=== PATIENT | female | born 1995 | race Two or more races ===

== ENCOUNTER 2016-11-09 07:19 | Emergency (ER) | payer OTHER ==
[~2016-11-09] VITALS: Ht 160 cm; Wt 77.1 kg
[2016-11-09] MEDS ORDERED: SODIUM CHLORIDE 0.9% 1,000 ML IV ONE (08:11)
[2016-11-09] MEDS ORDERED: HYDROmorphone HCL 2 MG/ML VL IV ONE (08:15)
[2016-11-09] MEDS ORDERED: PROMETHAZINE HCL 25 MG/ML 1ML IV PRN (08:15)
[2016-11-09 08:25] LABS: Basophils # (auto) 0 uL; Basophils % (auto) 0.2 % (0.0-2.0); Eosinophils # (auto) 0 uL; Hematocrit 38.7 % (36.0-46.0); Hemoglobin 13.3 g/dL (12.2-16.2); Lymphocytes # (auto) 0.7 uL; Lymphocytes % (auto) 5.4 % (10.0-50.0); Mean Corpuscular Hemoglobin 27.7 pg (28.0-32.0); Mean Corpuscular Hgb Conc. 34.3 g/dL (32.0-36.0); Mean Corpuscular Volume 80.8 fL (80.0-100.0); Mean Platelet Volume 7.5 fL (7.4-10.4); Monocytes # (auto) 0.2 uL; Monocytes % (auto) 1.2 % (0.0-12.0); Neutrophils # (auto) 12.2 uL; Neutrophils % (auto) 93.2 % (37.0-80.0); Platelet Count (auto) 317 10^3/uL (140-450); White Blood Cell 13.1 10^3/uL (4.4-10.8)
[2016-11-09 09:29] LABS: Albumin 3.1 g/dL (3.4-5.0); BUN/Creatinine Ratio 19.5; Bilirubin, Total 0.3 mg/dL (0.2-1.0); Calcium 9.2 mg/dL (8.5-10.1); Potassium 3.7 mmol/L (3.5-5.1); Total Protein 7.3 g/dL (6.4-8.2)
[2016-11-09 11:08] LABS: Urine Bilirubin Negative (Negative); Urine Blood Negative /uL (Negative); Urine Color Yellow (Yellow); Urine Glucose Normal (Normal); Urine Mucus FEW (None Seen); Urine Nitrite Negative (Negative); Urine RBC 4 /hpf (0 - 4); Urine Squamous Epithelial Cell FEW /hpf (<5); Urine Urobilinogen Normal (Negative); Urine pH 6.5 (5.0-8.0)
[2016-11-09 11:11] LABS: Urine Ketone 4+ (Negative)
[2016-11-09] MEDS ORDERED: cefTRIAXone 1GM/50ML D5W 50 ML IV ONE (12:45)
== END 2016-11-09 14:34 | disposition home or self-care (01) ==
LOC: ER 07:19
DX: O23.42 Unspecified infection of urinary tract in pregnancy, second trimester (principal); O26.892 Other specified pregnancy related conditions, second trimester; N20.1 Calculus of ureter; Z3A.22 22 weeks gestation of pregnancy
CPT/HCPCS: 36415; 76775; 76805; 80053; 81001; 83690; 83735; 85025; 96361; 96365; 96375; 99285; J0696; J1170; J2550; J7030

== ENCOUNTER 2017-02-18 12:50 | Inpatient (IN) | payer MEDICAID ==
[~2017-02-18] VITALS: Ht 160 cm; Wt 86.6 kg
[2017-02-18] MEDS ORDERED: LACT. RINGERS/OXYTOCIN 20UNITS 1,000 ML IV SCH (14:09)
[2017-02-18] MEDS: LACTATED RINGER'S 1,000 ML IV SCH ×2 (14:09→22:09)
[2017-02-18] MEDS ORDERED: NALBUPHINE HCL 10 MG/1ml INJECTION IV PRN (14:15)
[2017-02-18] MEDS ORDERED: LIDOCAINE 2%HCL (LOCAL ANESTH.) INJ 20ML MDV IJ ONE (14:15)
[2017-02-18] MEDS ORDERED: WITCH HAZEL-GLYCERIN PAD TOP PRN (14:15)
[2017-02-18] MEDS ORDERED: PHISODERM TOP SOLN 240ML BTL TOP PRN (14:15)
[2017-02-18] MEDS ORDERED: METHYLERGONOVINE MALEATE 0.2 MG/ML AMP IM PRN (14:15)
[2017-02-18] MEDS ORDERED: DERMOPLAST 60ML BOTTLE TOP PRN (14:15)
[2017-02-18] MEDS ORDERED: PENICILLIN G POT 5MIL/D5 50ML 50 ML IV ONE (14:30)
[2017-02-18 14:52] LABS: Basophils # (auto) 0 uL; Basophils % (auto) 0.2 % (0.0-2.0); Eosinophils # (auto) 0 uL; Eosinophils % (auto) 0.2 % (0.0-7.0); Hematocrit 38.8 % (36.0-46.0); Lymphocytes # (auto) 1.3 uL; Lymphocytes % (auto) 16.6 % (10.0-50.0); Mean Corpuscular Hgb Conc. 33.5 g/dL (32.0-36.0); Mean Corpuscular Volume 89.6 fL (80.0-100.0); Mean Platelet Volume 6.8 fL (7.4-10.4); Monocytes # (auto) 0.4 uL; Monocytes % (auto) 5.7 % (0.0-12.0); Neutrophils # (auto) 5.9 uL; Neutrophils % (auto) 77.3 % (37.0-80.0); Nucleated Red Blood Cells % 0.1 %; Platelet Count (auto) 216 10^3/uL (140-450); Red Cell Distribution Width 14.6 % (11.6-16.0); White Blood Cell 7.6 10^3/uL (4.4-10.8)
[2017-02-18 15:09] LABS: INR 0.92 (0.9-1.15); Partial Thromboplastin Time 30.1 sec (22.64-33.71)
[2017-02-18 15:13] LABS: Albumin 2.5 g/dL (3.4-5.0); BUN/Creatinine Ratio 12.5; Calcium 8.7 mg/dL (8.5-10.1); Potassium 3.7 mmol/L (3.5-5.1)
[2017-02-18 15:16] LABS: Bilirubin, Total 0.3 mg/dL (0.2-1.0); Total Protein 6.3 g/dL (6.4-8.2)
[2017-02-18 16:14] LABS: Urine Bilirubin Negative (Negative); Urine Blood Negative /uL (Negative); Urine Color Yellow (Yellow); Urine Glucose Normal (Normal); Urine Ketone Negative (Negative); Urine Mucus FEW (None Seen); Urine Nitrite Negative (Negative); Urine RBC 4 /hpf (0 - 4); Urine Squamous Epithelial Cell FEW /hpf (<5); Urine Urobilinogen Normal (Negative); Urine pH 7.5 (5.0-8.0)
[2017-02-18] MEDS ORDERED: PROMETHAZINE HCL 25 MG/ML 1ML IV PRN (17:00)
[2017-02-18] MEDS: PENICILLIN G POTASSIUM 2,500,000 UNITS in D5W 5% 50 ML IV SCH ×2 (18:41→22:41)
[2017-02-18] MEDS ORDERED: fentaNYL W ROPIVACAINE 150 ML EPI ONE (20:10)
[2017-02-18] MEDS ORDERED: LIDOCAINE HCL 2 %PF INJ 10ML AMP IJ ONE ×2 (20:10→20:15)
[2017-02-18] MEDS ORDERED: fentaNYL CITRATE 100 MCG/2 ML VL ONE (20:10)
[2017-02-18] MEDS ORDERED: fentaNYL CITRATE 100 MCG/2 ML VL IV ONE (20:15)
[2017-02-18] MEDS ORDERED: fentaNYL W ROPIVACAINE 150 ML EPI SCH ×2 (20:15→21:30)
[2017-02-18] MEDS ORDERED: NALOXONE HCL 0.4 MG/ML VIAL IV ONE ×2 (20:15→21:30)
[2017-02-18] MEDS ORDERED: ePHEDrine SULFATE 50 MG/ML AMP IV ONE ×2 (20:15→21:30)
[2017-02-18] MEDS ORDERED: ePHEDrine SULFATE 50 MG/ML AMP ONE (20:17)
[2017-02-18] MEDS ORDERED: NALOXONE HCL 0.4 MG/ML VIAL ONE (20:17)
[2017-02-18] MEDS ORDERED: SODIUM CHLORIDE 0.9% 500 ML IV PRN (21:17)
[2017-02-19] MEDS ORDERED: IBUPROFEN 600 MG TAB PO PRN (01:00)
[2017-02-19] MEDS ORDERED: ACETAMINOPHEN 325 MG TAB PO PRN (01:00)
[2017-02-19] MEDS ORDERED: LACT. RINGERS/OXYTOCIN 20UNITS 1,000 ML IV SCH (01:52)
[2017-02-19] MEDS: PENICILLIN G POTASSIUM 2,500,000 UNITS in D5W 5% 50 ML IV SCH (02:30)
[2017-02-19 08:25] VITALS: BP 104/52
[2017-02-19 12:21] VITALS: BP 100/55
[2017-02-19 16:00] VITALS: BP 112/58
[2017-02-19] MEDS ORDERED: ACET-1156 PO (16:31)
[2017-02-19] MEDS ORDERED: PRENCAP61 PO (16:31)
[2017-02-19 18:54] VITALS: BP 115/64
[2017-02-19 23:00] VITALS: BP 132/81
[2017-02-20 03:05] VITALS: BP 116/67
[2017-02-20 06:40] VITALS: BP 121/69
== END 2017-02-20 11:00 | disposition home or self-care (01) | DRG 560 ==
LOC: LDRP 12:50
PROVIDERS: ADMIT Obstetrics & Gynecology; ATTEND Obstetrics & Gynecology
PROC: 3E0S3CZ (ICD-10-PCS; principal; 2017-02-19)
PROC: 10E0XZZ Delivery of Products of Conception, External Approach (ICD-10-PCS; 2017-02-19)
PROC: 00HU33Z Insertion of Infusion Device into Spinal Canal, Percutaneous Approach (ICD-10-PCS; 2017-02-19)
PROC: 0KQM0ZZ Repair Perineum Muscle, Open Approach (ICD-10-PCS; 2017-02-19)
DX: O69.81X0 Labor and delivery complicated by cord around neck, without compression, not applicable or unspecified (principal); O71.4 Obstetric high vaginal laceration alone; Z37.0 Single live birth; O42.02 Full-term premature rupture of membranes, onset of labor within 24 hours of rupture; Z3A.37 37 weeks gestation of pregnancy
CPT/HCPCS: 36415; 51702; 59025; 59409; 62282; 80053; 80307; 81001; 81002; 85025; 85610; 85730; 86592; 86850; 86900; 86901; 94762; 96361; 96366; J2540; J2590; J3010; J7060

== ENCOUNTER 2022-03-14 10:52 | Observation (INO) | payer MEDICAID ==
[~2022-03-14 10:52] MED LIST: ACET-1156 PO; PRENCAP61 PO
== END 2022-03-14 12:53 | disposition home or self-care (01) ==
LOC: UNDOADMOB 10:52 → LDRP 10:52
PROVIDERS: ADMIT Obstetrics & Gynecology; ATTEND Obstetrics & Gynecology
DX: O60.03 Preterm labor without delivery, third trimester (principal); Z3A.33 33 weeks gestation of pregnancy
CPT/HCPCS: 59025; 81002; 94760; G0378

== ENCOUNTER 2022-03-17 15:04 | Observation (INO) | payer MEDICAID ==
[~2022-03-17] VITALS: Ht 160 cm; Wt 90.7 kg
[2022-03-17] MEDS ORDERED: BETAMETHASONE ACET (30mg/5ml) 5ml Vial 6mg/ml IM ONE (15:30)
[2022-03-17] MEDS: TERBUTALINE SULFATE 1 MG/ML 1ML VIAL SC SCH ×2 (15:34→15:54)
[2022-03-17] MEDS ORDERED: LACTATED RINGER'S 1,000 ML IV ONE (15:45)
[2022-03-17] MEDS ORDERED: ceFAZolin 2 GM in D5W 5% 100 ML IV ONE (15:45)
[2022-03-17] MEDS ORDERED: NITR-87 PO (17:54)
[2022-03-17] MEDS ORDERED: NIF10C PO (17:55)
== END 2022-03-17 19:26 | disposition home or self-care (01) ==
LOC: LDRP 15:04
PROVIDERS: ADMIT Obstetrics & Gynecology; ATTEND Obstetrics & Gynecology
DX: O99.891 Other specified diseases and conditions complicating pregnancy (principal); M54.50 Low back pain, unspecified; O21.2 Late vomiting of pregnancy; O26.893 Other specified pregnancy related conditions, third trimester; R07.89 Other chest pain; Z3A.33 33 weeks gestation of pregnancy
CPT/HCPCS: 59025; 76775; 81002; 94760; 96361; 96365; 96372; G0378; J0690; J0702; J3105; J7060; 96360

== ENCOUNTER 2022-03-18 14:52 | Observation (INO) | payer MEDICAID ==
[~2022-03-18] VITALS: Ht 160 cm; Wt 90.7 kg
[~2022-03-18 14:52] MED LIST changes: +NIF10C PO; +NITR-87 PO
[2022-03-18] MEDS ORDERED: BETAMETHASONE ACET (30mg/5ml) 5ml Vial 6mg/ml IM ONE (15:15)
== END 2022-03-18 15:41 | disposition home or self-care (01) ==
LOC: UNDOADMOB 14:52 → LDRP 14:52
PROVIDERS: ADMIT Obstetrics & Gynecology Obstetrics; ATTEND Obstetrics & Gynecology Obstetrics
DX: O60.03 Preterm labor without delivery, third trimester (principal); Z3A.33 33 weeks gestation of pregnancy
CPT/HCPCS: 96372; G0378

== ENCOUNTER 2022-03-25 07:52 | Observation (INO) | payer MEDICAID ==
[2022-03-25] MEDS ORDERED: HYDR250I6 IM (12:17)
== END 2022-03-25 12:45 | disposition home or self-care (01) ==
LOC: UNDOADMOB 10:37 → LDRP 10:37 → UNDODISOB 12:45
PROVIDERS: ADMIT Obstetrics & Gynecology Obstetrics; ATTEND Obstetrics & Gynecology Obstetrics
DX: O60.03 Preterm labor without delivery, third trimester (principal); Z3A.34 34 weeks gestation of pregnancy
CPT/HCPCS: 59025; 76818; 94760; G0378

== ENCOUNTER 2022-04-01 10:22 | Observation (INO) | payer MEDICAID ==
[~2022-04-01 10:22] MED LIST changes: +HYDR250I6 IM
== END 2022-04-01 12:27 | disposition home or self-care (01) ==
LOC: LDRP 10:34 → UNDOADMOB 10:40 → UNDODISOB 12:27
PROVIDERS: ADMIT Obstetrics & Gynecology Obstetrics; ATTEND Obstetrics & Gynecology Obstetrics
DX: O60.03 Preterm labor without delivery, third trimester (principal); Z3A.35 35 weeks gestation of pregnancy
CPT/HCPCS: 59025; 76818; 81002; 94760; G0378

== ENCOUNTER 2022-04-08 08:35 | Observation (INO) | payer MEDICAID | END 2022-04-08 13:11 | disposition home or self-care (01) | LOC: LDRP 11:12 → UNDOADMOB 11:29 → UNDODISOB 13:11 | PROVIDERS: ADMIT Obstetrics & Gynecology Obstetrics; ATTEND Obstetrics & Gynecology Obstetrics | DX: O60.03 Preterm labor without delivery, third trimester (principal); O26.893 Other specified pregnancy related conditions, third trimester; N89.8 Other specified noninflammatory disorders of vagina; R51.9 Headache, unspecified; Z3A.36 36 weeks gestation of pregnancy | CPT/HCPCS: 59025; 76818; 81002; G0378 ==

== ENCOUNTER 2022-04-16 11:17 | Observation (INO) | payer MEDICAID, OTHER ==
[~2022-04-16 11:17] MED LIST changes: -NITR-87 PO
== END 2022-04-16 12:17 | disposition home or self-care (01) ==
LOC: LDRP 11:17 → UNDOADMOB 11:17 → LDRP 11:25 → UNDODISOB 12:17
PROVIDERS: ADMIT Obstetrics & Gynecology; ATTEND Obstetrics & Gynecology
DX: O26.893 Other specified pregnancy related conditions, third trimester (principal); R10.30 Lower abdominal pain, unspecified; R11.0 Nausea; O99.891 Other specified diseases and conditions complicating pregnancy; M54.50 Low back pain, unspecified; Z3A.37 37 weeks gestation of pregnancy
CPT/HCPCS: 59025; 81002; 94760; G0378

== ENCOUNTER 2022-04-25 08:52 | Observation (INO) | payer OTHER | END 2022-04-25 11:31 | disposition home or self-care (01) | LOC: UNDOADMOB 08:52 → LDRP 08:52 → UNDODISOB 11:31 | PROVIDERS: ADMIT Obstetrics & Gynecology; ATTEND Obstetrics & Gynecology | DX: O62.9 Abnormality of forces of labor, unspecified (principal); Z3A.39 39 weeks gestation of pregnancy | CPT/HCPCS: 59025; 81002; G0378 ==

== ENCOUNTER 2022-04-25 20:43 | Observation (INO) | payer OTHER | END 2022-04-25 23:25 | disposition home or self-care (01) | LOC: LDRP 20:43 | PROVIDERS: ADMIT Obstetrics & Gynecology; ATTEND Obstetrics & Gynecology | DX: O62.9 Abnormality of forces of labor, unspecified (principal); Z3A.39 39 weeks gestation of pregnancy | CPT/HCPCS: 59025; 81002; G0378 ==

== ENCOUNTER 2022-04-29 02:22 | Inpatient (IN) | payer OTHER ==
[~2022-04-29] VITALS: Ht 162.6 cm; Wt 97.5 kg
[2022-04-29] MEDS ORDERED: PHISODERM TOP SOLN 240ML BTL TOP PRN (03:30)
[2022-04-29] MEDS ORDERED: PROMETHAZINE HCL 25 MG/ML 1ML IV PRN (03:30)
[2022-04-29] MEDS ORDERED: WITCH HAZEL-GLYCERIN PAD TOP PRN (03:30)
[2022-04-29] MEDS ORDERED: LIDOCAINE 2%HCL (LOCAL ANESTH.) INJ 10ml MDV IJ PRN (03:30)
[2022-04-29] MEDS ORDERED: BUTORPHANOL TARTRATE 2 MG/1 ML VIAL IV PRN ×2 (03:30)
[2022-04-29] MEDS ORDERED: DERMOPLAST 60ML BOTTLE TOP PRN (03:30)
[2022-04-29 04:24] LABS: Basophils # (auto) 0 10 ^3/uL (0-0.2); Basophils % (auto) 0.3 % (0.0-2.0); Eosinophils # (auto) 0 10 ^3/uL (0-0.8); Eosinophils % (auto) 0.3 % (0.0-7.0); Hematocrit 39.4 % (36.0-46.0); Hemoglobin 13.3 g/dL (12.2-16.2); Lymphocytes # (auto) 2.1 10 ^3/uL (0.4-5.4); Lymphocytes % (auto) 28.6 % (10.0-50.0); Mean Corpuscular Hemoglobin 28.4 pg (28.0-32.0); Mean Corpuscular Hgb Conc. 33.7 g/dL (32.0-36.0); Mean Corpuscular Volume 84.3 fL (80.0-100.0); Monocytes # (auto) 0.5 10 ^3/uL (0-1.3); Monocytes % (auto) 6.4 % (0.0-12.0); Neutrophils # (auto) 4.7 10 ^3/uL (1.6-8.6); Neutrophils % (auto) 64.4 % (37.0-80.0); Nucleated Red Blood Cells % 0.1 %; Red Blood Cells 4.67 10^6/uL (4.0-5.20); Red Cell Distribution Width 14.9 % (11.8-14.3); White Blood Cell 7.3 10^3/uL (4.4-10.8)
[2022-04-29] MEDS ORDERED: PENICILLIN G POT 5MIL/D5 50ML 50 ML IV ONE (04:30)
[2022-04-29 04:36] LABS: Alcohol, Urine < 3.0 mg/dL (0-10); Amphetamine Screen, Urine NEGATIVE (NEGATIVE); Barbiturate Scree,Urine NEGATIVE (NEGATIVE); Benzodiazephine Screen, Urine NEGATIVE (NEGATIVE); Cannabinoid Screen, Urine NEGATIVE (NEGATIVE); Cocaine Screen, Urine NEGATIVE (NEGATIVE); Opiate Scree,Urine NEGATIVE (NEGATIVE); Phencyclidine Screen, Urine NEGATIVE (NEGATIVE)
[2022-04-29 04:36] LABS: Albumin 2.7 g/dL (3.4-5.0); BUN/Creatinine Ratio 10.3; Calcium 9.7 mg/dL (8.5-10.1); Potassium 3.7 mmol/L (3.5-5.1)
[2022-04-29 04:39] LABS: Bilirubin, Total 0.2 mg/dL (0.2-1.0); Total Protein 6.8 g/dL (6.4-8.2)
[2022-04-29 04:53] LABS: INR 0.9 (0.9-1.15); Partial Thromboplastin Time 27.9 sec (24.6-33.4)
[2022-04-29] MEDS ORDERED: BUTORPHANOL TARTRATE 2 MG/1 ML VIAL ONE (05:28)
[2022-04-29] MEDS ORDERED: ROPIVACAINE HCL 200 ML EPI SCH ×2 (06:00→07:00)
[2022-04-29] MEDS ORDERED: LACTATED RINGER'S 1,000 ML IV ONE (06:00)
[2022-04-29] MEDS ORDERED: LIDOCAINE HCL 2 %PF INJ 10ML AMP IJ ONE (06:00)
[2022-04-29] MEDS ORDERED: SODIUM CHLORIDE 0.9% 500 ML IV PRN (06:00)
[2022-04-29] MEDS ORDERED: LACTATED RINGER'S 500 ML IV ONE (06:00)
[2022-04-29] MEDS ORDERED: NALOXONE HCL 0.4 MG/ML VIAL IV ONE (06:00)
[2022-04-29] MEDS ORDERED: ePHEDrine SULFATE 50 MG/ML AMP IV ONE (06:00)
[2022-04-29] MEDS ORDERED: fentaNYL CITRATE 100 MCG/2 ML VL ONE (06:17)
[2022-04-29] MEDS: LACTATED RINGER'S 1,000 ML IV SCH ×2 (06:46→11:30)
[2022-04-29] MEDS ORDERED: LACT. RINGERS/OXYTOCIN 20UNITS 500 ML IV ONE ×2 (07:00→07:30)
[2022-04-29] MEDS ORDERED: LIDOCAINE 2%HCL (LOCAL ANESTH.) INJ 20ML MDV ONE (07:50)
[2022-04-29] MEDS ORDERED: PENICILLIN G POTASSIUM 2,500,000 UNITS in D5W 5% 50 ML IV SCH (08:30)
[2022-04-29] MEDS ORDERED: ACETAMINOPHEN 325 MG TAB PO PRN (09:15)
[2022-04-29] MEDS ORDERED: DOCUSATE SOD 100 MG CAP PO PRN (09:15)
[2022-04-29] MEDS ORDERED: ONDANSETRON ODT 4 MG TAB PO PRN (09:15)
[2022-04-29 09:40] LABS: Urine Amorphous Crystal FEW /hpf (None Seen); Urine Bacteria FEW /hpf (None Seen); Urine Blood Negative /uL (Negative); Urine WBC 3 /hpf (0 - 5)
[2022-04-29 10:29] VITALS: BP 126/58
[2022-04-29 11:07] VITALS: BP 110/62
[2022-04-29] MEDS: IBUPROFEN 800 MG TAB PO SCH ×2 (12:58→18:55)
[2022-04-29 15:30] VITALS: BP 108/62
[2022-04-29 19:30] VITALS: BP 129/71
[2022-04-29 23:00] VITALS: BP 118/66
[2022-04-30] MEDS: IBUPROFEN 800 MG TAB PO SCH ×2 (00:20→09:27)
[2022-04-30 03:00] VITALS: BP 132/66
[2022-04-30] MEDS ORDERED: IBUP800T26 PO (06:09)
[2022-04-30 06:45] VITALS: BP 132/84
[2022-04-30 08:07] LABS: RPR Non Reactive (Non Reactive)
== END 2022-04-30 11:51 | disposition home or self-care (01) | DRG 560 ==
LOC: LDRP 02:22 → OBSVTOIN 02:45 → LDRP 03:09
PROVIDERS: ADMIT Obstetrics & Gynecology; ATTEND Obstetrics & Gynecology
PROC: 10E0XZZ Delivery of Products of Conception, External Approach (ICD-10-PCS; principal; 2022-04-29)
PROC: 3E0R3BZ Introduction of Anesthetic Agent into Spinal Canal, Percutaneous Approach (ICD-10-PCS; 2022-04-29)
PROC: 00HU33Z Insertion of Infusion Device into Spinal Canal, Percutaneous Approach (ICD-10-PCS; 2022-04-29)
DX: O69.81X0 Labor and delivery complicated by cord around neck, without compression, not applicable or unspecified (principal); Z37.0 Single live birth; Z20.822 Contact with and (suspected) exposure to COVID-19; Z3A.39 39 weeks gestation of pregnancy
CPT/HCPCS: 36415; 59409; 62282; 80053; 80307; 81001; 85025; 85610; 85730; 86592; 86850; 86900; 86901; 87426; 94760; 94762; 96360; 96361; 96366; G0378; J2590; J7060